=== PATIENT | male | born 1990 | race Caucasian/White ===

== ENCOUNTER 2017-07-31 17:11 | Emergency (ER) | payer SELFPAY ==
[~2017-07-31 17:11] MED LIST: Z.0.NO CURRENT MEDS
[2017-07-31 17:21] VITALS: BP 146/84; PULSE 106; RESP 20; TEMP 98.6; O2SAT 96
--- NOTE | 2017-07-31 17:31 | PD ---
HPI Chief Complaint: OD/ Ingestion Time Seen by Provider: 17:24 Travel History International Travel<30 days: No Contact w/Intl Traveler<30days: No Traveled to known affect area: No History of Present Illness HPI 26-year-old male presents to the emergency department via EMS status post unintentional heroin overdose. Patient received 1 mg Narcan in route with improvement in mentation. Patient is currently alert and oriented and complaining of no pain. Patient denies other medical issues at this time. He has no known drug allergies. IV is in place. PFS Past Medical History Medical History: Denies Significant Hx Cancer: No Cardiovascular Problems: No Diabetes: No Glaucoma: No Hepatitis: No Hiatal Hernia: No Hypertension: No Respiratory: No Thyroid Disease: No Tetanus Vaccination: < 5 Years Past Surgical History Surgical History: No Previous Surgery Abdominal Surgery: No Cardiac Surgery: No Ear Surgery: No Endocrine Surgery: No Eye Surgery: No Neurologic Surgery: No Oral Surgery: No Pacemaker: No Thoracic Surgery: No Other Surgery: No Social History Alcohol Use: No Tobacco Use: Yes (1 PK DAY) Substance Use: Yes (HEROIN AND MARIJUANA) Allergies-Medications (Allergen,Severity, Reaction): Coded Allergies: No Known Allergies (Verified Allergy, Mild, 07/31/17) Reported Meds & Prescriptions Reported Meds & Active Scripts Active Reported No Current Meds (Miscellaneous Medication) Misc Review of Systems Except as stated in HPI: all other systems reviewed are Neg General / Constitutional: No: Fever Eyes: No: Visual changes HENT: No: Headaches Cardiovascular: No: Chest Pain or Discomfort Respiratory: No: Shortness of Breath Gastrointestinal: No: Abdominal Pain Genitourinary: No: Dysuria Musculoskeletal: No: Pain Skin: No Rash Neurologic: No: Weakness Psychiatric: No: Depression Endocrine: No: Polydipsia Hematologic/Lymphatic: No: Easy Bruising Physical Exam Narrative GENERAL: Patient appears somewhat disoriented but otherwise in no acute distress. SKIN: Warm and dry. Color. Normal turgor. No sign of infection. HEAD: Atraumatic. Normocephalic. EYES: Pupils and pointing and equal and round. No scleral icterus. No injection or drainage. ENT: No nasal bleeding or discharge. Mucous membranes pink and moist. Clear. Airway is patent. NECK: Trachea midline. Supple and nontender. CARDIOVASCULAR: Tachycardic rate and normal rhythm. RESPIRATORY: No accessory muscle use. Clear to auscultation. Breath sounds equal bilaterally. GASTROINTESTINAL: Abdomen soft, non-tender, nondistended. Hepatic and splenic margins not palpable. MUSCULOSKELETAL: Extremities without clubbing, cyanosis, or edema. No obvious deformities. NEUROLOGICAL: Awake and alert. No obvious cranial nerve deficits. Motor grossly within normal limits. Five out of 5 muscle strength in the arms and legs. Normal speech. PSYCHIATRIC: Appropriate mood and affect; insight and judgment normal. Data Data Last Documented VS Vital Signs Date Time Temp Pulse Resp B/P (MAP) Pulse Ox O2 Delivery O2 Flow Rate FiO2 07/31/17 17:21 98.6 106 20 146/84 (104) 96 Orders Orders Naloxone Inj (Narcan Inj) (07/31/17 17:45) Ed Discharge Order (07/31/17 21:51) [facility] Medical Decision Making Medical Screen Exam Complete: Yes Emergency Medical Condition: Yes Differential Diagnosis Heroin overdose. Mental status. Need for Narcan. Need for observation. Narrative Course Patient appears currently medically stable at this time. Further lab workup is not felt warranted after discussion with Dr. Wong. Patient will be monitored for the next 4 hours. 1900 hrs., care of the patient is turned over to Dr. Wong who will determine final disposition. Diagnosis Primary Impression: Heroin overdose Qualified Codes: T40.1X1A - Poisoning by heroin, accidental (unintentional), initial encounter Condition: Stable James Tomas Jul 31, 2017 17:31
[2017-07-31] MEDS ORDERED: NALOXONE HCL 0.4 MG/ML AMP IV PUSH PRN (17:45)
--- NOTE | 2017-07-31 21:53 | PD ---
Physical Exam Narrative Patient was seen by ED physician and signed out to me. Data Data Last Documented VS Vital Signs Date Time Temp Pulse Resp B/P (MAP) Pulse Ox O2 Delivery O2 Flow Rate FiO2 07/31/17 17:21 98.6 106 20 146/84 (104) 96 Orders Orders Naloxone Inj (Narcan Inj) (07/31/17 17:45) Ed Discharge Order (07/31/17 21:51) MDM Supervised Visit with JUSTIN: No Narrative Course 21:52 PM. Patient's awake alert oriented 3. Patient steady on his feet. Patient will be discharged. Diagnosis Primary Impression: Drug overdose Qualified Codes: T50.901A - Poisoning by unspecified drugs, medicaments and biological substances, accidental (unintentional), initial encounter Patient Instructions: General Instructions Additional Instruction: Advised [facility]. Med/Other Pt SpecificInfo: No Meds Exist/No RX given Disposition: 01 DISCHARGE HOME Condition: Stable Steve Wong MD Jul 31, 2017 21:53
== END 2017-07-31 22:07 | disposition home or self-care (01) ==
LOC: NEPD 17:11
DX: T40.1X1A Poisoning by heroin, accidental (unintentional), initial encounter (principal)
CPT/HCPCS: 99283